=== PATIENT | male | born 2000 | race African-American/Black ===

== ENCOUNTER 2021-12-21 11:56 | Emergency (ER) | payer OTHER ==
[~2021-12-21] VITALS: Ht 172.7 cm; Wt 66.7 kg
[2021-12-21] MEDS ORDERED: KETOROLAC 30 MG/ML 1ML VIAL IV ONE (15:50)
[2021-12-21] MEDS ORDERED: NORCO, ANEXSIA 5/325MG TABLET (HYDROcodone/ACETAMINOPHEN) PO ONE (16:05)
[2021-12-21] MEDS ORDERED: KETOROLAC 30 MG/ML 1ML VIAL IM ONE (16:05)
[2021-12-21] MEDS ORDERED: HYDR-3713 PO (19:13)
[2021-12-21 19:42] VITALS: BP 128/91
== END 2021-12-21 19:45 | disposition home or self-care (01) ==
LOC: M ED 11:56
DX: S52.501A Unspecified fracture of the lower end of right radius, initial encounter for closed fracture (principal); S52.502A Unspecified fracture of the lower end of left radius, initial encounter for closed fracture; V00.311A Fall from snowboard, initial encounter; Y92.838 Other recreation area as the place of occurrence of the external cause
CPT/HCPCS: 73110; 73200; 96372; 99283; J1885